=== PATIENT | female | born 1995 | race Hispanic/Latino ===

== ENCOUNTER 2020-09-29 18:48 | Emergency (ER) | payer OTHER ==
[~2020-09-29] VITALS: Ht 154.9 cm; Wt 105.7 kg
[~2020-09-29 18:48] MED LIST: KEPPRA750 MG; TOPAMAX25 MG
[2020-09-29] MEDS ORDERED: ONDANSETRON HCL 4 MG ORAL DISINTEGRATING TAB PO ONE (19:00)
[2020-09-29 19:45] LABS: BASOPHILS % 0.2 % (0.0-1.0); EOSINOPHILS % 0.2 % (0.0-6.0); HEMATOCRIT 44.4 % (34.2-44.1); HEMOGLOBIN 14.5 g/dL (12.0-16.0); LYMPHOCYTES # (AUTO) 2.1 (1.0-3.2); LYMPHOCYTES % 17.3 % (18.0-39.1); MEAN CORPUSCULAR HEMOGLOBIN 29.1 pg (28-32); MEAN CORPUSCULAR HGB CONC 32.7 g/dL (31-35); MEAN CORPUSCULAR VOLUME 89.2 fL (81-99); MONOCYTES # (AUTO) 0.8 (0.2-0.8); MONOCYTES % 6.3 % (4.4-11.3); NEUTROPHILS # (AUTO) 9.3 (2.1-6.9); NEUTROPHILS % 75.5 % (38.7-80.0); PLATELET COUNT 250 x10e3/uL (140-360); RED BLOOD COUNT 4.98 x10e6/uL (3.6-5.1); RED CELL DISTRIBUTION WIDTH 14.8 % (11.7-14.4)
[2020-09-29 20:05] LABS: ALANINE AMINOTRANSFERASE 35 IU/L (0-55); ALBUMIN 3.7 g/dL (3.5-5.0); ALBUMIN/GLOBULIN RATIO 0.9 (0.8-2.0); ALKALINE PHOSPHATASE 53 IU/L (40-150); ANION GAP 12.9 mmol/L (8-16); BLOOD UREA NITROGEN 7 mg/dL (7-26); BUN/CREATININE RATIO 9 (6-25); CALCIUM 9.5 mg/dL (8.4-10.2); CARBON DIOXIDE 23 mmol/L (22-29); CHLORIDE 106 mmol/L (98-107); CREATININE, SERUM 0.79 mg/dL (0.57-1.11); EST GLOMERULAR FILTRATION RATE > 60 ML/MIN (60-); GLUCOSE 82 mg/dL (74-118); POTASSIUM 3.9 mmol/L (3.5-5.1); SODIUM 138 mmol/L (136-145)
[2020-09-29] MEDS ORDERED: SODIUM CHLORIDE 0.9% 1000ML 1,000 ML ONE (20:06)
[2020-09-29] MEDS ORDERED: ACETAMINOPHEN 325 MG TAB ONE (20:35)
[2020-09-29 22:56] LABS: CLARITY,URINE CLOUDY (CLEAR); COLOR,URINE YELLOW (YELLOW); KETONES,URINE 3+ (NEGATIVE); LEUKOCYTE ESTERASE ,URINE NEGATIVE (NEGATIVE); NITRITE,URINE NEGATIVE (NEGATIVE); PROTEIN,URINE DIPSTICK NEGATIVE (NEGATIVE); URINE UROBILINOGEN 0.2 mg/dL (0.2 - 1)
[2020-09-29 23:01] LABS: BACTERIA,URINE MODERATE /HPF; EPITHELIAL CELLS,URINE MODERATE /LPF; RBC,URINE 0-5 /HPF (0-5); WBC,URINE (MAN) 0-5 /HPF (0-5)
[2020-09-29] MEDS ORDERED: ZUPLENZ4 MG PO (23:08)
[2020-09-29] MEDS ORDERED: CEPHALEXIN500 MG PO (23:08)
[2020-09-29 23:36] VITALS: BP 123/76
== END 2020-09-29 23:30 | disposition home or self-care (01) ==
LOC: ER 19:00
DX: O23.41 Unspecified infection of urinary tract in pregnancy, first trimester (principal); O21.0 Mild hyperemesis gravidarum; R10.30 Lower abdominal pain, unspecified; G40.909 Epilepsy, unspecified, not intractable, without status epilepticus
CPT/HCPCS: 36415; 74181; 80053; 81001; 83690; 85025; 99284; J7030; Q0162

== ENCOUNTER 2020-11-12 19:22 | Emergency (ER) | payer OTHER ==
[~2020-11-12 19:22] MED LIST changes: +CEPHALEXIN500 MG PO; +ZUPLENZ4 MG PO
== END 2020-11-12 19:30 | disposition left against medical advice (07) ==
LOC: ER 19:28
DX: R56.9 Unspecified convulsions (principal)